=== PATIENT | male | born 1955 | race Caucasian/White ===

== ENCOUNTER → 2021-04-08 | Outpatient (CLI) | payer OTHER ==
[~2021-04-08] MED LIST: ASPIR-TRIN325 MG PO; BAYER CHEWABLE81 MG PO; BYSTOLIC 5 MG5 M1 PO; COLACE100 MG PO; FERREX 150 PLU1 EAC1 PO; FLOMAX0.4 MG PO; HYDROCODONE-AP1 EAC6 PO; LASIX 40 MG TAB40 M2 PO; LIPITOR10 MG PO; NICOTROL INHAL1 CAR1 INH; PACERONE 200 M200 M1 PO; PLAVIX 75 MG TA75 M1 PO; POTASSIUM20 PO; SIMVASTATIN40 MG PO; XANAX 0.5 MG0.5 MG PO; ZESTORETIC 20-1 EAC3 PO
== END ==
LOC: SJCVC 13:06
PROVIDERS: ATTEND Internal Medicine Cardiovascular Disease
DX: R94.31 Abnormal electrocardiogram [ECG] [EKG] (principal); C94.00 Acute erythroid leukemia, not having achieved remission; I25.10 Atherosclerotic heart disease of native coronary artery without angina pectoris; I10 Essential (primary) hypertension; E78.00 Pure hypercholesterolemia, unspecified; I77.9 Disorder of arteries and arterioles, unspecified; I73.9 Peripheral vascular disease, unspecified; F41.9 Anxiety disorder, unspecified; I63.239 Cerebral infarction due to unspecified occlusion or stenosis of unspecified carotid artery; K21.9 Gastro-esophageal reflux disease without esophagitis; E78.2 Mixed hyperlipidemia; Z79.82 Long term (current) use of aspirin; Z79.899 Other long term (current) drug therapy; Z95.1 Presence of aortocoronary bypass graft; Z82.49 Family history of ischemic heart disease and other diseases of the circulatory system; Z87.891 Personal history of nicotine dependence

== ENCOUNTER → 2021-08-12 | Outpatient (CLI) | payer OTHER ==
[~2021-08-12] VITALS: Ht 172.7 cm; Wt 99.8 kg
[~2021-08-12] MED LIST changes: +EDARBYCLOR 40-1 EAC1 PO; +EZALLOR SPRINKL40 MG PO; +NORVASC5 MG PO; +PLAVIX 75 MG TA75 MG PO; +TAMSULOSIN HCL0.4 MG PO
[2021-08-12 07:40] VITALS: BP 138/77
[2021-08-12 07:43] LABS: HEMATOCRIT 47.3 % (42.0-52.0); HEMOGLOBIN 16.3 gm/dL (14.0-18.0); MCH 31.9 pg (26.0-34.0); MCHC 34.4 g/dL (28.0-37.0); MCV 92.8 fL (80.0-100.0); RBC 5.1 mil/uL (4.50-6.00); RDW 13.9 % (10.5-14.5); WBC 5.4 thou/uL (4.0-11.0)
[2021-08-12 07:50] LABS: CREATININE 1.4 mg/dL (0.7-1.3)
== END | disposition home or self-care (01) ==
LOC: CATH 06:34
PROVIDERS: ATTEND Nuclear Medicine Nuclear Cardiology
DX: I70.212 Atherosclerosis of native arteries of extremities with intermittent claudication, left leg (principal); M79.605 Pain in left leg; I70.1 Atherosclerosis of renal artery; I10 Essential (primary) hypertension; I25.10 Atherosclerotic heart disease of native coronary artery without angina pectoris; E78.5 Hyperlipidemia, unspecified; J44.9 Chronic obstructive pulmonary disease, unspecified; Z98.890 Other specified postprocedural states; Z79.899 Other long term (current) drug therapy; Z87.891 Personal history of nicotine dependence; Z95.1 Presence of aortocoronary bypass graft

== ENCOUNTER → 2021-09-22 | Outpatient (CLI) | payer OTHER ==
[~2021-09-22] VITALS: Ht 172.7 cm; Wt 99.8 kg
[2021-09-22 07:46] VITALS: BP 129/70
[2021-09-22 08:40] LABS: HEMATOCRIT 47.8 % (42.0-52.0); HEMOGLOBIN 16.3 gm/dL (14.0-18.0); MCH 31.7 pg (26.0-34.0); MCV 93.1 fL (80.0-100.0); RBC 5.13 mil/uL (4.50-6.00); RDW 14.4 % (10.5-14.5); WBC 5.7 thou/uL (4.0-11.0)
[2021-09-22 08:42] LABS: CALCIUM 9.3 mg/dL (8.5-10.1); CREATININE 1.2 mg/dL (0.7-1.3)
[2021-09-22 08:44] LABS: POTASSIUM 5.4 mmol/L (3.5-5.1)
[2021-09-22 10:42] VITALS: BP 124/61
[2021-09-22 10:43] VITALS: BP 124/61
[2021-09-22 12:22] VITALS: BP 123/63
[2021-09-22 12:24] VITALS: BP 126/69
[2021-09-22 12:30] VITALS: BP 113/57
== END | disposition home or self-care (01) ==
LOC: CATH 06:30
PROVIDERS: ATTEND Nuclear Medicine Nuclear Cardiology
DX: I70.211 Atherosclerosis of native arteries of extremities with intermittent claudication, right leg (principal); I70.1 Atherosclerosis of renal artery; M79.604 Pain in right leg; M79.605 Pain in left leg; I10 Essential (primary) hypertension; I25.10 Atherosclerotic heart disease of native coronary artery without angina pectoris; E78.5 Hyperlipidemia, unspecified; J44.9 Chronic obstructive pulmonary disease, unspecified; Z98.890 Other specified postprocedural states; Z87.891 Personal history of nicotine dependence; Z79.899 Other long term (current) drug therapy; Z88.8 Allergy status to other drugs, medicaments and biological substances